=== PATIENT | female | born 1990 | race Caucasian/White ===

== ENCOUNTER 2020-01-11 18:20 | Inpatient (IN) | payer OTHER ==
[~2020-01-11] VITALS: Ht 162.6 cm; Wt 88.5 kg
[2020-01-11 18:30] VITALS: BP 134/77
[2020-01-11] MEDS ORDERED: POLYETHYLENE GLYCOL 3350 17 GM PACKET PO PRN (20:15)
[2020-01-11] MEDS ORDERED: HydrOXYzine HCL 25 MG TABLET PO PRN (20:15)
[2020-01-11] MEDS: MAGNESIUM OXIDE 400 MG TABLET PO SCH (21:37)
[2020-01-11] MEDS: SENNA 187 MG TABLET PO SCH (21:37)
[2020-01-11] MEDS: DOCUSATE SODIUM 100 MG CAPSULE PO SCH (21:37)
[2020-01-11] MEDS: MELATONIN 3 MG TABLET PO PRN (21:37)
[2020-01-11 23:30] VITALS: BP 114/63
[2020-01-12 07:22] LABS: BASOPHILS % (AUTO) 0.8 % (0.0-2.0); EOSINOPHILS % (AUTO) 1.5 % (1.0-6.0); HEMATOCRIT 33.1 % (36-46); HEMOGLOBIN 11.4 g/dL (12.0-16.0); LYMPHOCYTES # (AUTO) 1.6 K/uL (1.0-4.8); LYMPHOCYTES % (AUTO) 23.6 % (22.0-44.0); MEAN CORPUSCULAR HEMOGLOBIN 30.5 pg (26.0-34.0); MEAN CORPUSCULAR HGB CONC 34.4 G/dL (31.0-37.0); MEAN CORPUSCULAR VOLUME 89 fL (80-100); MONOCYTES # (AUTO) 0.4 K/uL (0.1-1.0); MONOCYTES % (AUTO) 5.5 % (2.0-9.0); NEUTROPHILS # (AUTO) 4.6 K/uL (1.8-7.7); NEUTROPHILS % (AUTO) 68.6 % (40.0-70.0); PLATELET COUNT (AUTO) 272 K/uL (150-450); RED BLOOD CELL COUNT(AUTO) 3.72 MIL/uL (4.00-5.20); RED CELL DISTRIBUTION WIDTH 13.4 % (11.5-14.5)
[2020-01-12 07:43] LABS: ALANINE AMINOTRANSFERASE 33 U/L (12-78); ALKALINE PHOSPHATASE 62 U/L (46-116); ANION GAP 9 mmol/L (8-16); ASPARTATE AMINOTRANSFERASE 17 U/L (15-37); BILIRUBIN,TOTAL 0.4 mg/dL (0.1-1.0); CALCIUM, TOTAL 8.8 mg/dL (8.8-10.5); CARBON DIOXIDE 24 mmol/L (22-29); CHLORIDE 102 mmol/L (98-107); CREATININE 0.64 mg/dL (0.60-1.30); GLOMERULAR FILTR. RATE CALC > 60 mL/min (>60); GLUCOSE,RANDOM 86 mg/dL (70-110); POTASSIUM 3.5 mmol/L (3.5-5.1); SODIUM SERUM 135 mmol/L (136-145); TOTAL PROTEIN, SERUM 6.7 g/dL (6.4-8.2); UREA NITROGEN, BLOOD 7 mg/dL (7-18)
[2020-01-12 08:00] VITALS: BP 128/80
[2020-01-12] MEDS: MAGNESIUM OXIDE 400 MG TABLET PO SCH ×2 (08:10→20:43)
[2020-01-12] MEDS: DOCUSATE SODIUM 100 MG CAPSULE PO SCH ×2 (08:10→20:43)
[2020-01-12] MEDS: PRENATAL NO.137/IRON/FOLIC ACID TABLET PO SCH (08:10)
[2020-01-12] MEDS: CLOPIDOGREL BISULFATE 75 MG TABLET PO SCH (08:10)
[2020-01-12] MEDS: NIFEdipine 30 MG ER TABLET PO SCH (08:10)
[2020-01-12] MEDS: SERTRALINE HCL 100 MG TABLET PO SCH (08:11)
[2020-01-12 16:08] VITALS: BP 110/63
[2020-01-12] MEDS: SENNA 187 MG TABLET PO SCH (20:43)
[2020-01-12] MEDS: MELATONIN 3 MG TABLET PO PRN (20:46)
[2020-01-13 06:00] VITALS: BP 105/71
[2020-01-13] MEDS: DOCUSATE SODIUM 250 MG CAPSULE PO SCH ×2 (08:38→20:47)
[2020-01-13] MEDS: MAGNESIUM OXIDE 400 MG TABLET PO SCH ×2 (08:38→20:47)
[2020-01-13] MEDS: CLOPIDOGREL BISULFATE 75 MG TABLET PO SCH (08:38)
[2020-01-13] MEDS: PRENATAL NO.137/IRON/FOLIC ACID TABLET PO SCH (08:39)
[2020-01-13 08:41] VITALS: BP 109/60
[2020-01-13] MEDS: SERTRALINE HCL 100 MG TABLET PO SCH (08:41)
[2020-01-13 10:30] VITALS: BP 118/68
[2020-01-13] MEDS: NIFEdipine 30 MG ER TABLET PO SCH (10:32)
[2020-01-13 16:05] VITALS: BP 124/66
[2020-01-13] MEDS: SENNA 187 MG TABLET PO SCH (20:47)
[2020-01-13] MEDS: MELATONIN 3 MG TABLET PO PRN (20:49)
[2020-01-14 06:00] VITALS: BP 122/74
[2020-01-14 08:00] VITALS: BP 129/64
[2020-01-14] MEDS: SERTRALINE HCL 100 MG TABLET PO SCH (08:52)
[2020-01-14] MEDS: CLOPIDOGREL BISULFATE 75 MG TABLET PO SCH (08:53)
[2020-01-14] MEDS: DOCUSATE SODIUM 250 MG CAPSULE PO SCH ×2 (08:53→20:19)
[2020-01-14] MEDS: MAGNESIUM OXIDE 400 MG TABLET PO SCH ×2 (08:53→20:19)
[2020-01-14] MEDS: PRENATAL NO.137/IRON/FOLIC ACID TABLET PO SCH (08:54)
[2020-01-14] MEDS: NIFEdipine 30 MG ER TABLET PO SCH (08:54)
[2020-01-14 16:00] VITALS: BP 127/70
[2020-01-14 18:11] LABS: GLUCOMETER DEV NAME(LOC) 2WR.2B; GLUCOSE,POINT OF CARE 84 MG/DL (70-110)
[2020-01-14] MEDS: MELATONIN 3 MG TABLET PO PRN (20:19)
[2020-01-14] MEDS: SENNA 187 MG TABLET PO SCH (20:19)
[2020-01-15 06:00] VITALS: BP 121/62
[2020-01-15 06:08] LABS: GLUCOMETER DEV NAME(LOC) 2WR.2B; GLUCOSE,POINT OF CARE 83 MG/DL (70-110)
[2020-01-15 08:00] VITALS: BP 127/76
[2020-01-15] MEDS: NIFEdipine 30 MG ER TABLET PO SCH (08:10)
[2020-01-15] MEDS: MAGNESIUM OXIDE 400 MG TABLET PO SCH ×2 (08:10→19:28)
[2020-01-15] MEDS: CLOPIDOGREL BISULFATE 75 MG TABLET PO SCH (08:11)
[2020-01-15] MEDS: DOCUSATE SODIUM 250 MG CAPSULE PO SCH ×2 (08:11→19:27)
[2020-01-15] MEDS: SERTRALINE HCL 100 MG TABLET PO SCH (08:11)
[2020-01-15] MEDS: PRENATAL NO.137/IRON/FOLIC ACID TABLET PO SCH (08:11)
[2020-01-15 16:00] VITALS: BP 119/84
[2020-01-15 18:51] LABS: GLUCOMETER DEV NAME(LOC) 2WR.2B; GLUCOSE,POINT OF CARE 84 MG/DL (70-110)
[2020-01-15] MEDS: MELATONIN 3 MG TABLET PO PRN (19:28)
[2020-01-15] MEDS: SENNA 187 MG TABLET PO SCH (19:28)
[2020-01-15] MEDS ORDERED: SERT100T12 PO (22:16)
[2020-01-15] MEDS ORDERED: MAGOX PO (22:16)
[2020-01-15] MEDS ORDERED: PNV1TABL54 PO (22:16)
[2020-01-16 04:03] VITALS: BP 114/71
[2020-01-16 08:25] VITALS: BP 118/64
[2020-01-16 08:34] LABS: GLUCOMETER DEV NAME(LOC) 2WR.2B; GLUCOSE,POINT OF CARE 71 MG/DL (70-110)
[2020-01-16] MEDS: SERTRALINE HCL 100 MG TABLET PO SCH (09:00)
[2020-01-16] MEDS: DOCUSATE SODIUM 250 MG CAPSULE PO SCH ×2 (09:00→20:24)
[2020-01-16] MEDS: MAGNESIUM OXIDE 400 MG TABLET PO SCH ×2 (09:04→18:52)
[2020-01-16] MEDS: CLOPIDOGREL BISULFATE 75 MG TABLET PO SCH (09:05)
[2020-01-16] MEDS: PRENATAL NO.137/IRON/FOLIC ACID TABLET PO SCH (09:05)
[2020-01-16] MEDS: NIFEdipine 30 MG ER TABLET PO SCH (09:05)
[2020-01-16 17:00] VITALS: BP 127/72
[2020-01-16 18:54] LABS: GLUCOMETER DEV NAME(LOC) 2WR.2B; GLUCOSE,POINT OF CARE 78 MG/DL (70-110)
[2020-01-16] MEDS: SENNA 187 MG TABLET PO SCH (20:24)
[2020-01-17 05:30] VITALS: BP 120/76
[2020-01-17 07:20] VITALS: BP 137/77
[2020-01-17] MEDS: MAGNESIUM OXIDE 400 MG TABLET PO SCH ×2 (08:20→20:20)
[2020-01-17] MEDS: DOCUSATE SODIUM 250 MG CAPSULE PO SCH ×2 (08:20→20:33)
[2020-01-17] MEDS: SERTRALINE HCL 100 MG TABLET PO SCH (08:20)
[2020-01-17] MEDS: CLOPIDOGREL BISULFATE 75 MG TABLET PO SCH (08:20)
[2020-01-17] MEDS: PRENATAL NO.137/IRON/FOLIC ACID TABLET PO SCH (08:20)
[2020-01-17] MEDS: NIFEdipine 30 MG ER TABLET PO SCH (08:29)
[2020-01-17 15:30] VITALS: BP 129/76
[2020-01-17 18:50] LABS: GLUCOMETER DEV NAME(LOC) 2WR.2B; GLUCOSE,POINT OF CARE 82 MG/DL (70-110)
[2020-01-17] MEDS: SENNA 187 MG TABLET PO SCH (20:33)
[2020-01-18 06:28] VITALS: BP 122/66
[2020-01-18 06:28] LABS: GLUCOMETER DEV NAME(LOC) 2WR.2B; GLUCOSE,POINT OF CARE 75 MG/DL (70-110)
[2020-01-18] MEDS: DOCUSATE SODIUM 250 MG CAPSULE PO SCH ×2 (09:00→21:00)
[2020-01-18] MEDS: SERTRALINE HCL 100 MG TABLET PO SCH (09:00)
[2020-01-18 09:42] VITALS: BP 135/82
[2020-01-18] MEDS: NIFEdipine 30 MG ER TABLET PO SCH (09:59)
[2020-01-18] MEDS: PRENATAL NO.137/IRON/FOLIC ACID TABLET PO SCH (09:59)
[2020-01-18] MEDS: MAGNESIUM OXIDE 400 MG TABLET PO SCH ×2 (09:59→20:49)
[2020-01-18] MEDS: CLOPIDOGREL BISULFATE 75 MG TABLET PO SCH (09:59)
[2020-01-18 15:20] VITALS: BP 122/86
[2020-01-18] MEDS: SENNA 187 MG TABLET PO SCH (21:00)
[2020-01-19 05:45] VITALS: BP 130/74
[2020-01-19] MEDS: DOCUSATE SODIUM 250 MG CAPSULE PO SCH ×2 (09:00→20:40)
[2020-01-19] MEDS: SERTRALINE HCL 100 MG TABLET PO SCH (09:00)
[2020-01-19 09:02] VITALS: BP 125/82
[2020-01-19] MEDS: NIFEdipine 30 MG ER TABLET PO SCH (09:13)
[2020-01-19] MEDS: MAGNESIUM OXIDE 400 MG TABLET PO SCH ×2 (09:13→20:40)
[2020-01-19] MEDS: CLOPIDOGREL BISULFATE 75 MG TABLET PO SCH (09:13)
[2020-01-19] MEDS: PRENATAL NO.137/IRON/FOLIC ACID TABLET PO SCH (09:13)
[2020-01-19 16:07] VITALS: BP 121/77
[2020-01-19] MEDS: SENNA 187 MG TABLET PO SCH (20:40)
[2020-01-19 23:01] VITALS: BP 117/66
[2020-01-19] MEDS: ACETAMINOPHEN 325 MG TABLET PO PRN (23:01)
[2020-01-20] MEDS: MELATONIN 3 MG TABLET PO PRN (00:14)
[2020-01-20 00:19] VITALS: BP 113/71
[2020-01-20 09:00] VITALS: BP 111/74
[2020-01-20] MEDS: SERTRALINE HCL 100 MG TABLET PO SCH (09:00)
[2020-01-20] MEDS: DOCUSATE SODIUM 250 MG CAPSULE PO SCH ×2 (09:00→20:51)
[2020-01-20] MEDS: PRENATAL NO.137/IRON/FOLIC ACID TABLET PO SCH (09:05)
[2020-01-20] MEDS: NIFEdipine 30 MG ER TABLET PO SCH (09:06)
[2020-01-20] MEDS: CLOPIDOGREL BISULFATE 75 MG TABLET PO SCH (09:06)
[2020-01-20] MEDS: MAGNESIUM OXIDE 400 MG TABLET PO SCH ×2 (09:06→20:51)
[2020-01-20 16:46] VITALS: BP 127/68
[2020-01-20] MEDS: SENNA 187 MG TABLET PO SCH (20:52)
[2020-01-21 06:15] VITALS: BP 132/73
[2020-01-21] MEDS: SERTRALINE HCL 100 MG TABLET PO SCH (09:00)
[2020-01-21] MEDS: DOCUSATE SODIUM 250 MG CAPSULE PO SCH ×2 (09:00→20:29)
[2020-01-21 09:03] VITALS: BP 139/79
[2020-01-21] MEDS: PRENATAL NO.137/IRON/FOLIC ACID TABLET PO SCH (09:10)
[2020-01-21] MEDS: NIFEdipine 30 MG ER TABLET PO SCH (09:10)
[2020-01-21] MEDS: CLOPIDOGREL BISULFATE 75 MG TABLET PO SCH (09:10)
[2020-01-21] MEDS: MAGNESIUM OXIDE 400 MG TABLET PO SCH ×2 (09:10→20:30)
[2020-01-21 16:00] VITALS: BP 116/79
[2020-01-21] MEDS: SENNA 187 MG TABLET PO SCH (20:30)
[2020-01-22 06:25] VITALS: BP 131/75
[2020-01-22] MEDS: DOCUSATE SODIUM 250 MG CAPSULE PO SCH ×2 (09:00→18:56)
[2020-01-22] MEDS: SERTRALINE HCL 100 MG TABLET PO SCH (09:00)
[2020-01-22 09:04] VITALS: BP 141/83
[2020-01-22] MEDS: MAGNESIUM OXIDE 400 MG TABLET PO SCH ×2 (09:34→18:55)
[2020-01-22] MEDS: PRENATAL NO.137/IRON/FOLIC ACID TABLET PO SCH (09:34)
[2020-01-22] MEDS: NIFEdipine 30 MG ER TABLET PO SCH (09:34)
[2020-01-22] MEDS: CLOPIDOGREL BISULFATE 75 MG TABLET PO SCH (09:34)
[2020-01-22 16:43] VITALS: BP 122/65
[2020-01-22] MEDS: SENNA 187 MG TABLET PO SCH (18:56)
[2020-01-22 23:52] VITALS: BP 114/60
[2020-01-23] MEDS: DOCUSATE SODIUM 250 MG CAPSULE PO SCH ×2 (09:00→20:20)
[2020-01-23] MEDS: SERTRALINE HCL 100 MG TABLET PO SCH (09:00)
[2020-01-23 09:03] VITALS: BP 113/67
[2020-01-23] MEDS: NIFEdipine 30 MG ER TABLET PO SCH (09:10)
[2020-01-23] MEDS: CLOPIDOGREL BISULFATE 75 MG TABLET PO SCH (09:11)
[2020-01-23] MEDS: MAGNESIUM OXIDE 400 MG TABLET PO SCH ×2 (09:11→20:20)
[2020-01-23] MEDS: PRENATAL NO.137/IRON/FOLIC ACID TABLET PO SCH (09:11)
[2020-01-23 17:05] VITALS: BP 106/70
[2020-01-23] MEDS: SENNA 187 MG TABLET PO SCH (20:20)
[2020-01-24 06:13] VITALS: BP 110/57
[2020-01-24] MEDS: CLOPIDOGREL BISULFATE 75 MG TABLET PO SCH (08:39)
[2020-01-24] MEDS: PRENATAL NO.137/IRON/FOLIC ACID TABLET PO SCH (08:39)
[2020-01-24] MEDS: NIFEdipine 30 MG ER TABLET PO SCH (08:39)
[2020-01-24] MEDS: ACETAMINOPHEN 325 MG TABLET PO PRN (08:39)
[2020-01-24] MEDS: DOCUSATE SODIUM 250 MG CAPSULE PO SCH ×2 (08:40→20:26)
[2020-01-24] MEDS: MAGNESIUM OXIDE 400 MG TABLET PO SCH ×2 (08:40→20:25)
[2020-01-24 09:00] VITALS: BP 114/66
[2020-01-24] MEDS: SERTRALINE HCL 100 MG TABLET PO SCH (10:25)
[2020-01-24 16:00] VITALS: BP 138/57
[2020-01-24] MEDS: SENNA 187 MG TABLET PO SCH (20:25)
[2020-01-25] VITALS: BP 107/67
[2020-01-25 08:40] VITALS: BP 146/95
[2020-01-25] MEDS: MAGNESIUM OXIDE 400 MG TABLET PO SCH (08:48)
[2020-01-25] MEDS: SERTRALINE HCL 100 MG TABLET PO SCH (08:48)
[2020-01-25] MEDS: PRENATAL NO.137/IRON/FOLIC ACID TABLET PO SCH (08:48)
[2020-01-25] MEDS: NIFEdipine 30 MG ER TABLET PO SCH (08:48)
[2020-01-25] MEDS: CLOPIDOGREL BISULFATE 75 MG TABLET PO SCH (08:49)
[2020-01-25] MEDS: DOCUSATE SODIUM 250 MG CAPSULE PO SCH ×2 (08:50→20:13)
[2020-01-25 10:00] VITALS: BP 134/77
[2020-01-25] MEDS ORDERED: CYPROHEPTADINE HCL 4 MG TABLET PO PRN (15:45)
[2020-01-25 17:05] VITALS: BP 132/75
[2020-01-25] MEDS: SENNA 187 MG TABLET PO SCH (20:17)
[2020-01-26 06:01] VITALS: BP 130/75
[2020-01-26] MEDS: DOCUSATE SODIUM 250 MG CAPSULE PO SCH ×2 (09:00→20:12)
[2020-01-26 09:01] VITALS: BP 128/77
[2020-01-26] MEDS: PRENATAL NO.137/IRON/FOLIC ACID TABLET PO SCH (10:12)
[2020-01-26] MEDS: MAGNESIUM OXIDE 400 MG TABLET PO SCH (10:12)
[2020-01-26] MEDS: NIFEdipine 30 MG ER TABLET PO SCH (10:12)
[2020-01-26] MEDS: ASPIRIN 81 MG EC TABLET PO SCH (10:12)
[2020-01-26] MEDS: SERTRALINE HCL 100 MG TABLET PO SCH (10:13)
[2020-01-26 17:17] VITALS: BP 133/87
[2020-01-26] MEDS: SENNA 187 MG TABLET PO SCH (20:12)
[2020-01-26 23:15] VITALS: BP 106/52
[2020-01-27] MEDS: DOCUSATE SODIUM 250 MG CAPSULE PO SCH ×2 (09:00→20:28)
[2020-01-27 09:34] VITALS: BP 133/76
[2020-01-27] MEDS: ASPIRIN 81 MG EC TABLET PO SCH (10:00)
[2020-01-27] MEDS: PRENATAL NO.137/IRON/FOLIC ACID TABLET PO SCH (10:00)
[2020-01-27] MEDS: MAGNESIUM OXIDE 400 MG TABLET PO SCH (10:00)
[2020-01-27] MEDS: NIFEdipine 30 MG ER TABLET PO SCH (10:00)
[2020-01-27] MEDS: SERTRALINE HCL 100 MG TABLET PO SCH (10:01)
[2020-01-27 16:12] VITALS: BP 137/69
[2020-01-27] MEDS: SENNA 187 MG TABLET PO SCH (20:28)
[2020-01-27 23:54] VITALS: BP 118/73
[2020-01-28 06:48] LABS: BASOPHILS % (AUTO) 0.5 % (0.0-2.0); EOSINOPHILS % (AUTO) 1.7 % (1.0-6.0); HEMATOCRIT 32.1 % (36-46); HEMOGLOBIN 11.2 g/dL (12.0-16.0); LYMPHOCYTES # (AUTO) 1.7 K/uL (1.0-4.8); LYMPHOCYTES % (AUTO) 22.6 % (22.0-44.0); MEAN CORPUSCULAR HEMOGLOBIN 30.8 pg (26.0-34.0); MEAN CORPUSCULAR HGB CONC 34.8 G/dL (31.0-37.0); MEAN CORPUSCULAR VOLUME 89 fL (80-100); MONOCYTES # (AUTO) 0.4 K/uL (0.1-1.0); MONOCYTES % (AUTO) 5.7 % (2.0-9.0); NEUTROPHILS # (AUTO) 5.3 K/uL (1.8-7.7); NEUTROPHILS % (AUTO) 69.5 % (40.0-70.0); PLATELET COUNT (AUTO) 275 K/uL (150-450); RED BLOOD CELL COUNT(AUTO) 3.63 MIL/uL (4.00-5.20)
[2020-01-28 06:57] LABS: ANION GAP 5 mmol/L (8-16); CALCIUM, TOTAL 8.8 mg/dL (8.8-10.5); CARBON DIOXIDE 25 mmol/L (22-29); CHLORIDE 107 mmol/L (98-107); CREATININE 0.48 mg/dL (0.60-1.30); GLOMERULAR FILTR. RATE CALC > 60 mL/min (>60); GLUCOSE,RANDOM 92 mg/dL (70-110); POTASSIUM 3.8 mmol/L (3.5-5.1); SODIUM SERUM 137 mmol/L (136-145); UREA NITROGEN, BLOOD 6 mg/dL (7-18)
[2020-01-28 07:07] VITALS: BP 117/75
[2020-01-28] MEDS: MAGNESIUM OXIDE 400 MG TABLET PO SCH (08:14)
[2020-01-28] MEDS: PRENATAL NO.137/IRON/FOLIC ACID TABLET PO SCH (08:14)
[2020-01-28] MEDS: NIFEdipine 30 MG ER TABLET PO SCH (08:14)
[2020-01-28] MEDS: ASPIRIN 81 MG EC TABLET PO SCH (08:15)
[2020-01-28] MEDS: SERTRALINE HCL 100 MG TABLET PO SCH (08:15)
[2020-01-28] MEDS: DOCUSATE SODIUM 250 MG CAPSULE PO SCH ×2 (08:15→20:19)
[2020-01-28 16:00] VITALS: BP 112/80
[2020-01-28] MEDS: SENNA 187 MG TABLET PO SCH (20:19)
[2020-01-28 23:26] VITALS: BP 116/72
[2020-01-29] MEDS: MAGNESIUM OXIDE 400 MG TABLET PO SCH (08:56)
[2020-01-29] MEDS: SERTRALINE HCL 100 MG TABLET PO SCH (08:56)
[2020-01-29] MEDS: NIFEdipine 30 MG ER TABLET PO SCH (08:56)
[2020-01-29] MEDS: ASPIRIN 81 MG EC TABLET PO SCH (08:56)
[2020-01-29] MEDS: PRENATAL NO.137/IRON/FOLIC ACID TABLET PO SCH (08:56)
[2020-01-29] MEDS: DOCUSATE SODIUM 250 MG CAPSULE PO SCH ×2 (09:00→19:24)
[2020-01-29 09:01] VITALS: BP 121/77
[2020-01-29 17:58] VITALS: BP 113/83
[2020-01-29] MEDS: SENNA 187 MG TABLET PO SCH (19:24)
[2020-01-30 02:42] VITALS: BP 115/59
[2020-01-30] MEDS: DOCUSATE SODIUM 250 MG CAPSULE PO SCH ×2 (09:00→19:41)
[2020-01-30] MEDS: ASPIRIN 81 MG EC TABLET PO SCH (09:16)
[2020-01-30] MEDS: MAGNESIUM OXIDE 400 MG TABLET PO SCH (09:16)
[2020-01-30] MEDS: PRENATAL NO.137/IRON/FOLIC ACID TABLET PO SCH (09:17)
[2020-01-30] MEDS: NIFEdipine 30 MG ER TABLET PO SCH (09:17)
[2020-01-30 10:12] VITALS: BP 128/83
[2020-01-30] MEDS: SERTRALINE HCL 100 MG TABLET PO SCH (10:53)
[2020-01-30 17:56] VITALS: BP 107/67
[2020-01-30] MEDS: SENNA 187 MG TABLET PO SCH (19:41)
[2020-01-30] MEDS: MELATONIN 3 MG TABLET PO PRN (23:08)
[2020-01-30 23:46] VITALS: BP 121/60
[2020-01-31] MEDS: DOCUSATE SODIUM 250 MG CAPSULE PO SCH ×2 (09:00→20:13)
[2020-01-31 09:07] VITALS: BP 124/72
[2020-01-31] MEDS: SERTRALINE HCL 100 MG TABLET PO SCH (09:17)
[2020-01-31] MEDS: ASPIRIN 81 MG EC TABLET PO SCH (09:17)
[2020-01-31] MEDS: MAGNESIUM OXIDE 400 MG TABLET PO SCH (09:17)
[2020-01-31] MEDS: NIFEdipine 30 MG ER TABLET PO SCH ×2 (09:17→10:10)
[2020-01-31] MEDS: PRENATAL NO.137/IRON/FOLIC ACID TABLET PO SCH (09:17)
[2020-01-31 16:03] VITALS: BP 110/65
[2020-01-31] MEDS: ACETAMINOPHEN 325 MG TABLET PO PRN (16:03)
[2020-01-31] MEDS: MELATONIN 3 MG TABLET PO PRN (20:11)
[2020-01-31] MEDS: SENNA 187 MG TABLET PO SCH (20:13)
[2020-02-01 06:10] VITALS: BP 112/62
[2020-02-01] MEDS: DOCUSATE SODIUM 250 MG CAPSULE PO SCH ×2 (09:00→19:35)
[2020-02-01 10:00] VITALS: BP 143/90
[2020-02-01] MEDS: MAGNESIUM OXIDE 400 MG TABLET PO SCH (10:07)
[2020-02-01] MEDS: ASPIRIN 81 MG EC TABLET PO SCH (10:08)
[2020-02-01] MEDS: NIFEdipine 30 MG ER TABLET PO SCH (10:08)
[2020-02-01] MEDS: SERTRALINE HCL 100 MG TABLET PO SCH (10:08)
[2020-02-01] MEDS: PRENATAL NO.137/IRON/FOLIC ACID TABLET PO SCH (10:08)
[2020-02-01] MEDS: ACETAMINOPHEN 325 MG TABLET PO PRN (15:54)
[2020-02-01 16:00] VITALS: BP 118/64
[2020-02-01] MEDS: SENNA 187 MG TABLET PO SCH (19:35)
[2020-02-01] MEDS: MELATONIN 3 MG TABLET PO PRN (21:17)
[2020-02-02 06:15] VITALS: BP 125/67
[2020-02-02 07:30] VITALS: BP 124/60
[2020-02-02] MEDS: SERTRALINE HCL 100 MG TABLET PO SCH (08:57)
[2020-02-02] MEDS: PRENATAL NO.137/IRON/FOLIC ACID TABLET PO SCH (08:57)
[2020-02-02] MEDS: ASPIRIN 81 MG EC TABLET PO SCH (08:57)
[2020-02-02] MEDS: MAGNESIUM OXIDE 400 MG TABLET PO SCH (08:58)
[2020-02-02] MEDS: NIFEdipine 30 MG ER TABLET PO SCH (08:58)
[2020-02-02] MEDS: DOCUSATE SODIUM 250 MG CAPSULE PO SCH ×2 (09:00→19:47)
[2020-02-02 15:44] VITALS: BP 104/57
[2020-02-02] MEDS: SENNA 187 MG TABLET PO SCH (19:47)
[2020-02-03 06:00] VITALS: BP 120/73
[2020-02-03 08:30] VITALS: BP 122/66
[2020-02-03] MEDS: NIFEdipine 30 MG ER TABLET PO SCH (08:48)
[2020-02-03] MEDS: DOCUSATE SODIUM 250 MG CAPSULE PO SCH ×2 (08:49→21:00)
[2020-02-03] MEDS: SERTRALINE HCL 100 MG TABLET PO SCH (08:49)
[2020-02-03] MEDS: PRENATAL NO.137/IRON/FOLIC ACID TABLET PO SCH (08:49)
[2020-02-03] MEDS: MAGNESIUM OXIDE 400 MG TABLET PO SCH (08:49)
[2020-02-03] MEDS: ASPIRIN 81 MG EC TABLET PO SCH (08:49)
[2020-02-03 16:00] VITALS: BP 128/87
[2020-02-03] MEDS: SENNA 187 MG TABLET PO SCH (21:00)
[2020-02-04 04:50] VITALS: BP 103/62
[2020-02-04] MEDS: DOCUSATE SODIUM 250 MG CAPSULE PO SCH ×2 (09:00→19:26)
[2020-02-04] MEDS: MAGNESIUM OXIDE 400 MG TABLET PO SCH (09:01)
[2020-02-04] MEDS: PRENATAL NO.137/IRON/FOLIC ACID TABLET PO SCH (09:01)
[2020-02-04] MEDS: NIFEdipine 30 MG ER TABLET PO SCH (09:01)
[2020-02-04 09:02] VITALS: BP 123/63
[2020-02-04] MEDS: SERTRALINE HCL 100 MG TABLET PO SCH (09:02)
[2020-02-04] MEDS: ASPIRIN 81 MG EC TABLET PO SCH (09:02)
[2020-02-04] MEDS: ACETAMINOPHEN 325 MG TABLET PO PRN (12:56)
[2020-02-04 16:05] VITALS: BP 148/86
[2020-02-04] MEDS: SENNA 187 MG TABLET PO SCH (19:26)
[2020-02-04] MEDS ORDERED: ASPI-1111 PO (20:40)
[2020-02-04] MEDS ORDERED: NIFE30TA5 PO (20:40)
[2020-02-05] VITALS: BP 116/71
[2020-02-05 07:25] VITALS: BP 122/76
[2020-02-05] MEDS: PRENATAL NO.137/IRON/FOLIC ACID TABLET PO SCH (08:31)
[2020-02-05] MEDS: NIFEdipine 30 MG ER TABLET PO SCH (08:31)
[2020-02-05] MEDS: MAGNESIUM OXIDE 400 MG TABLET PO SCH (08:31)
[2020-02-05] MEDS: ASPIRIN 81 MG EC TABLET PO SCH (08:31)
[2020-02-05] MEDS: SERTRALINE HCL 100 MG TABLET PO SCH (08:32)
[2020-02-05] MEDS: DOCUSATE SODIUM 250 MG CAPSULE PO SCH ×2 (08:32→20:05)
[2020-02-05 15:30] VITALS: BP 117/70
[2020-02-05] MEDS: SENNA 187 MG TABLET PO SCH (20:06)
[2020-02-06 06:00] VITALS: BP 100/61
[2020-02-06] MEDS: PRENATAL NO.137/IRON/FOLIC ACID TABLET PO SCH (08:16)
[2020-02-06] MEDS: SERTRALINE HCL 100 MG TABLET PO SCH (08:16)
[2020-02-06] MEDS: MAGNESIUM OXIDE 400 MG TABLET PO SCH (08:16)
[2020-02-06] MEDS: NIFEdipine 30 MG ER TABLET PO SCH (08:16)
[2020-02-06] MEDS: DOCUSATE SODIUM 250 MG CAPSULE PO SCH (08:16)
[2020-02-06] MEDS: ASPIRIN 81 MG EC TABLET PO SCH (08:16)
[2020-02-06 09:01] VITALS: BP 114/66
== END 2020-02-06 13:29 | disposition home or self-care (01) | DRG 56 ==
LOC: 2WR 18:20
PROVIDERS: ADMIT Physical Medicine & Rehabilitation; ATTEND Physical Medicine & Rehabilitation
DX: I69.351 Hemiplegia and hemiparesis following cerebral infarction affecting right dominant side (principal); I63.9 Cerebral infarction, unspecified; F32.9 Major depressive disorder, single episode, unspecified; F41.9 Anxiety disorder, unspecified; F43.10 Post-traumatic stress disorder, unspecified; O24.419 Gestational diabetes mellitus in pregnancy, unspecified control; O14.90 Unspecified pre-eclampsia, unspecified trimester
CPT/HCPCS: 76801; 83735; 87081; 92507; 92508; 92523; 92526; 93970; 97110; 97112; 97116; 97150; 97163; 97166; 97530; 97535; 99366